=== PATIENT | female | born 1980 | race Caucasian/White ===

== ENCOUNTER 2019-12-18 18:47 | Emergency (ER) | payer MEDICAID ==
[~2019-12-18] VITALS: Ht 162.6 cm; Wt 70.0 kg
[2019-12-18 18:51] VITALS: BP 151/86
[2019-12-18] MEDS ORDERED: CYCL-1 PO (20:31)
[2019-12-18] MEDS ORDERED: HYDR-3965 PO (21:08)
== END 2019-12-18 21:34 | disposition home or self-care (01) ==
LOC: ER 18:48
DX: S22.32XA Fracture of one rib, left side, initial encounter for closed fracture (principal); F12.90 Cannabis use, unspecified, uncomplicated; F17.200 Nicotine dependence, unspecified, uncomplicated; Z56.0 Unemployment, unspecified; X50.1XXA Overexertion from prolonged static or awkward postures, initial encounter; Y93.89 Activity, other specified; Y92.89 Other specified places as the place of occurrence of the external cause; Y99.9 Unspecified external cause status
CPT/HCPCS: 71045; 99283

== ENCOUNTER 2020-03-28 00:51 | Emergency (ER) | payer MEDICAID ==
[~2020-03-28] VITALS: Ht 165.1 cm; Wt 72.7 kg
[~2020-03-28 00:51] MED LIST: CYCL-1 PO
[2020-03-28 01:36] LABS: BASOPHILS % (AUTO) 0.3 % (0-1); EOSINOPHILS % (AUTO) 0 % (0-6); HEMATOCRIT 37.4 % (35.0-45.0); HEMOGLOBIN 12.3 g/dl (12.0-16.0); LYMPHOCYTES # (AUTO) 1.7 X10'3 (1.1-4.8); LYMPHOCYTES % (AUTO) 13.6 % (21-51); MEAN CORPUSCULAR HEMOGLOBIN 28.3 PG (27.0-31.0); MEAN CORPUSCULAR VOLUME 85.9 FL (78-98); MEAN PLATELET VOLUME 8.5 FL (7.4-10.4); MONOCYTES # (AUTO) 0.8 X10'3 (0-0.9); MONOCYTES % (AUTO) 6.1 % (2-12); PLATELET COUNT 376 X10'3 (140-440); RED BLOOD COUNT 4.36 X10'6 (4.20-5.60); RED CELL DISTRIBUTION WIDTH 14.3 % (11.5-14.5); WHITE BLOOD COUNT 12.5 X10'3 (4.5-11.0)
[2020-03-28 01:40] LABS: URINE HCG NEGATIVE (NEG)
[2020-03-28 01:45] LABS: CLARITY,URINE SLIGHTLY CLOUDY (Clear); COLOR,URINE YELLOW (Yellow); GLUCOSE, URINE NEGATIVE (Neg); KETONES,URINE >=80 mg/dl (Neg); LEUKOCYTE ESTERASE ,URINE NEGATIVE (Neg); NITRITES, URINE NEGATIVE (Neg); OCCULT BLOOD,URINE MODERATE (Neg); PH,URINE 6.5 (4.8-8.0); PROTEIN,URINE 30 mg/dl (Neg)
[2020-03-28 01:46] LABS: UA COLLECTION TYPE CLN CATCH MIDSTREAM
[2020-03-28 01:47] LABS: BACTERIA,URINE NONE SEEN /HPF (Neg); RBC,URINE 0-2 /HPF (0-2); SQUAMOUS EPITHELIAL CELL,UR MODERATE /LPF (FEW); WBC,URINE NONE SEEN /HPF (0-4)
[2020-03-28 01:49] LABS: ALANINE AMINOTRANSFERASE 23 U/L (12-78); ALBUMIN 3.4 G/DL (3.4-5.0); ALBUMIN/GLOBULIN RATIO 0.8 (1.1-1.5); ALKALINE PHOSPHATASE 111 IU/L (46-116); ANION GAP 11 (8-16); ASPARTATE AMINO TRANSFERASE 21 U/L (10-37); BILIRUBIN,TOTAL 0.3 MG/DL (0.1-1.0); BLOOD UREA NITROGEN 10 MG/DL (7-18); BUN/CREATININE RATIO 9.5 (6.6-38.0); CALCIUM 8.7 MG/DL (8.5-10.1); CHLORIDE 103 MMOL/L (99-107); CREATININE 1.05 MG/DL (0.40-0.90); GLUCOSE 114 MG/DL (70-104); LIPASE 111 U/L (73-393); POTASSIUM 3.4 MMOL/L (3.5-5.1); SODIUM 141 MMOL/L (135-145); TOTAL CARBON DIOXIDE 27.1 MMOL/L (24-32); TOTAL PROTEIN 7.7 G/DL (6.4-8.2); eGFR 59 ML/MIN
[2020-03-28] MEDS ORDERED: morphine 4 MG/ML inj SYRINge IV PRN (01:50)
[2020-03-28] MEDS ORDERED: ondansetron/PF 4mg/2ml inj IV ONE (01:50)
[2020-03-28] MEDS ORDERED: normal saline 1000ML IV soln IVB ONE (01:50)
[2020-03-28] MEDS ORDERED: diphenhydrAMINE 50 mg/ml inj IV ONE (02:05)
--- NOTE | 2020-03-28 02:12 | NUR ---
Pt had a localized histamine reaction to the morphine. Pt started itching and got a rash instantly. Was witnessed by the RN who administered morphine. The IV flushed appropriately and benadryl was administered
[2020-03-28] MEDS ORDERED: ONDA4TAB6 PO (03:02)
[2020-03-28 03:13] VITALS: BP 107/62
== END 2020-03-28 03:15 | disposition home or self-care (01) ==
LOC: ER 00:52
DX: R10.84 Generalized abdominal pain (principal); N20.0 Calculus of kidney; K44.9 Diaphragmatic hernia without obstruction or gangrene; R11.2 Nausea with vomiting, unspecified; F12.90 Cannabis use, unspecified, uncomplicated; Z56.0 Unemployment, unspecified; Z98.890 Other specified postprocedural states; Z79.899 Other long term (current) drug therapy
CPT/HCPCS: 36415; 74176; 80053; 81001; 81025; 83690; 85025; 96361; 96374; 96375; 99284; J1200; J2270; J2405; J7030